=== PATIENT | male | born 2000 | race Caucasian/White ===

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

== ENCOUNTER 2018-02-07 10:41 | Inpatient (IN) | payer MEDICAID ==
[~2018-02-07] VITALS: Ht 175.3 cm; Wt 112.9 kg
[2018-02-07 11:05] VITALS: BP 125/60; PULSE 84; RESP 16; TEMP 98.6; O2SAT 100
[2018-02-07] MEDS ORDERED: CARB200C2 PO (12:17)
--- NOTE | 2018-02-07 12:38 | PD ---
HPI Chief Complaint: Psychiatric Symptoms Time Seen by Provider: 12:12 Travel History International Travel<30 days: No Contact w/Intl Traveler<30days: No Traveled to known affect area: No History of Present Illness HPI 18-year-old male presents emergency department voluntarily for psychiatric evaluation. He was sent here from [facility]. He sees Dr. Skaggs. He has history of as burgers and ADHD. He also has history of seizures and takes carbamazepine. Apparently he had amount down yesterday and his mother is at the bedside and said that he was making statements that he wished his heart would explode and he would . Per mom the patient has behavioral problems. The patient states that he is "emotionally a wreck." When he gets upset he punches [place]. He says he does not want to hurt anybody or hurt himself. He denies suicidal or homicidal ideations. Denies illicit drug use, alcohol use, tobacco use. Denies auditory or visual hallucinations. Mom states he has been drinking for energy drinks per day, and was not aware of this. He has been told by his neurologist that he should avoid energy drinks secondary to the medications that he is on. He denies chest pain, shortness of breath, abdominal pain, nausea, vomiting, fevers, change in urine or stool. Denies recent illness. He says his symptoms are worsened depending on the situation. He says his symptoms are better when listening to music and mom says that he "rocks." Symptoms are moderate to severe in severity. Unknown duration. Unknown onset. Primary care provider is Dr. Leggett. Psychiatrist is Dr. Skaggs. Allergies to Topamax. Has no other medical complaints. No other modifying factors or associated signs and symptoms. PFSH Past Medical History ADHD: Yes Developmental Delay: Yes Diminished Hearing: No Respiratory: Yes (RESP PROBLEMS AT ,LACK OF OXYGEN) Immunizations Current: Yes Seizures: Yes Past Surgical History Ear Surgery: Yes (tubes put in his ears three times.) Tonsillectomy: Yes (and adnoids out) Tympanostomy Tube: Yes Other Surgery: Yes ([facility]) Social History Alcohol Use: No Tobacco Use: No Substance Use: No Allergies-Medications (Allergen,Severity, Reaction): Coded Allergies: topiramate (Unverified Allergy, Mild, Seizures, 3/28/18) Mom states he had a grand mal seizure when this med was added. Reported Meds & Prescriptions Reported Meds & Active Scripts Active Klonopin (Clonazepam) 1 Mg Tab 1 Mg PO HS Risperdal (Risperidone) 1 Mg Tab 1 Mg PO BID Reported Carbatrol ER 12 HR (Carbamazepine) 200 Mg Cap 1,200 Mg PO DAILY Review of Systems Except as stated in HPI: all other systems reviewed are Neg Physical Exam Narrative GENERAL: Well-nourished, well-developed male patient, in no acute distress SKIN: Warm and dry. HEAD: Atraumatic. Normocephalic. EYES: Pupils equal and round. ENT: Mucosa pink and moist. NECK: Supple. Trachea midline. CARDIOVASCULAR: Regular rate and rhythm. No murmur appreciated. RESPIRATORY: No accessory muscle use. Clear to auscultation. Breath sounds equal bilaterally. GASTROINTESTINAL: Abdomen soft, non-tender, nondistended. Hepatic and splenic margins not palpable. Bowel sounds are active 4 quadrants. MUSCULOSKELETAL: No obvious deformities. No clubbing. No cyanosis. No edema. BACK: No CVA tenderness. NEUROLOGICAL: Awake and alert. Oriented 3. No obvious cranial nerve deficits. Motor grossly within normal limits. Normal speech. Moves all extremities. 5/5 strength to all extremities. PSYCHIATRIC: No delusional thought processes. No hallucinations. Data Data Last Documented VS Vital Signs Date Time Temp Pulse Resp B/P (MAP) Pulse Ox O2 Delivery O2 Flow Rate FiO2 02/07/18 11:05 98.6 84 16 125/60 (81) 100 Orders Orders Complete Blood Count With Diff (02/07/18 12:14) Comprehensive Metabolic Panel (02/07/18 12:14) Thyroid Stimulating Hormone (02/07/18 12:14) Psych Screen (02/07/18 12:14) Drug Screen, Random Urine (02/07/18 12:14) Alcohol (Ethanol) (02/07/18 12:14) Salicylates (Aspirin) (02/07/18 12:14) Tylenol (Acetaminophen) (02/07/18 12:14) Carbamazepine (Tegretol) (02/07/18 12:22) [facility] Medical Decision Making Medical Screen Exam Complete: Yes Emergency Medical Condition: Yes Medical Record Reviewed: Yes Differential Diagnosis Medical clearance for psychiatric evaluation, Asperger's, ADHD, mood disorders, adjustment disorder Narrative Course Patient presents voluntarily. Physical examination and vital signs are essentially unremarkable. Patient has no medical complaints to report. Psych screen has been ordered. If the laboratory results are unremarkable, the patient will be medically cleared for psychiatric evaluation and disposition. Diagnosis Primary Impression: Medical clearance for psychiatric admission Condition: Stable Ivana Wang Feb 07, 2018 12:38
[2018-02-07 12:48] LABS: AUTOMATED NEUTROPHIL # 3.8 TH/MM3 (1.8-7.7); BASOPHIL % 0.5 % (0.0-2.0); EOSINOPHIL # 0.1 TH/MM3 (0-0.4); EOSINOPHIL % 1.2 % (0.0-4.0); HEMATOCRIT 47.1 % (39.0-51.0); HEMOGLOBIN 16.4 GM/DL (13.0-17.0); LYMPH % 27.3 % (9.0-44.0); LYMPHOCYTE # 1.8 TH/MM3 (1.0-4.8); MEAN CORPUSCULAR HGB CONC 34.7 % (32.0-36.0); MEAN PLATELET VOLUME 6.4 FL (7.0-11.0); MONO % 12.2 % (0.0-8.0); MONOCYTE # 0.8 TH/MM3 (0-0.9); NEUT % 58.8 % (16.0-70.0); PLATELET COUNT 241 TH/MM3 (150-450); RED BLOOD COUNT 4.97 MIL/MM3 (4.50-5.90); RED CELL DISTRIBUTION WIDTH 12.6 % (11.6-17.2); WHITE BLOOD COUNT 6.4 TH/MM3 (4.0-11.0)
[2018-02-07 13:38] LABS: ACETAMINOPHEN LESS THAN 2.0 MCG/ML (10.0-30.0); ALBUMIN 3.7 GM/DL (3.4-5.0); ALT (GPT) 28 U/L (9-52); AST (GOT) 24 U/L (15-39); BICARBONATE 26.8 MEQ/L (21.0-32.0); BLOOD UREA NITROGEN 9 MG/DL (7-18); CALCIUM 8.6 MG/DL (8.5-10.1); CHLORIDE 108 MEQ/L (98-107); CREATININE 0.91 MG/DL (0.60-1.30); GLOMERULAR FILTRATION RATE 106 ML/MIN (>89); GLUCOSE,RANDOM 99 MG/DL (74-106); SODIUM (NA) 141 MEQ/L (136-145)
[2018-02-07 13:43] LABS: ALKALINE PHOSPHATASE 87 U/L (45-117); TOTAL BILIRUBIN ADULT 0.4 MG/DL (0.2-1.0); TOTAL PROTEIN 7.8 GM/DL (6.4-8.2)
[2018-02-07 18:37] VITALS: BP 126/60; PULSE 96; RESP 18; O2SAT 100
--- NOTE | 2018-02-07 21:26 | PD ---
History of Present Illness Chief Complaint: Psychiatric Symptoms Time Seen by Provider: 20:30 Travel History International Travel<30 Days: No Contact w/Intl Traveler<30days: No Known affected area: No Legal Status Legal Status: Voluntary History of Present Illness: History of Present Illness HPI 18-year-old, single, male with history of Asperger's spectrum disorder , impulse control disorder, seizure disorder, ADHD who presents emergency department voluntarily for psychiatric evaluation. He is accompanied by his guardian whom he calls his mother since she has taken care of him since he was 1 years old. He has been a patient of Dr. Skaggs for a few years at [facility]. The patient was brought to [facility] with complaints of increase in symptoms for the past 2 week including increase talk about wanting to , increased in talking about feeling depressed, increase in irritability, increase in episodes of anger. There have been several stressors in the past 4 weeks including medication changes by his neurologist ,who at the request of the patient changed his Carbatrol to once a day in the morning. The mother feels that since this change he has been more irritable. Patient was also fired from his job 2 weeks ago after he had an argument with a coworker and subsequently punching a compress her. He allegedly got fired because he told his employer that he was not able to manage his anger. After he lost his job vocational rehab has sent him back to high school for retraining since he is not yet 19 years old. Electronic medical record is reviewed. No previous contact with [facility] psychiatry. Current Tegretol level was 8.7. Toxicology is negative. Patient is seen in [facility]. He has been in adequate behavioral control. He is dressed in [facility] and maintaining basic hygiene. Fair amount of eye contact. Speech is clear and logical of normal tone and rate, demonstrates echolalia at times. There is no hallucinations, no delusions and no paranoia. Mood is dysphoric. He reports that when he feels depressed he has a tendency to stay in the dark in his room, decreased appetite, decreased decrease interactions with others. The patient does acknowledge passive suicidal ideation with no intent or plan at this time. He reports to sleeping fair with a tendency to sleep mostly during the daytime. Patient admits to occasional use of marijuana. Current toxicology as stated previously is negative. Telephone call to his more mother, Mirella to obtain collateral information at . She corroborates above information regarding recent medication changes as well as recent changes in his mood and his irritability. She also reports that she was his legal guardian up until he was age 16 but that she has not petitioned for legal guardianship of him as an adult. [facility] Past Medical History ADHD: Yes Developmental Delay: Yes Diminished Hearing: No Respiratory: Yes (RESP PROBLEMS AT ,LACK OF OXYGEN) Immunizations Current: Yes Seizures: Yes Past Surgical History Ear Surgery: Yes (tubes put in his ears three times.) Tonsillectomy: Yes (and adnoids out) Tympanostomy Tube: Yes Other Surgery: Yes ([facility]) Psychiatric History Psychiatric History Hx Psychiatric Treatment: No history of inpatient treatment. Has has received outpatient treatment at [facility] with Dr. Workman. History of Inpatient Treatment: No Guns or firearms in home: No Social History Single, never . Had finished high school in special education. 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 Hx Alcohol Use: No Hx Tobacco Use: No Hx Substance Use: No Substance Use Type: Marijuana Other Substances Used: Pt denies Hx of Substance Use Treatment: No Family Psychiatric History Negative Allergies-Medications (Allergen,Severity, Reaction): Coded Allergies: topiramate (Unverified Allergy, Mild, Seizures, 02/07/18) Mom states he had a grand mal seizure when this med was added. Reported Meds & Prescriptions Reported Meds & Active Scripts Active Klonopin (Clonazepam) 1 Mg Tab 1 Mg PO HS Risperdal (Risperidone) 1 Mg Tab 1 Mg PO BID Reported Carbatrol ER 12 HR (Carbamazepine) 200 Mg Cap 1,200 Mg PO DAILY Review of Systems Psychiatric: COMPLAINS OF: Mood changes, Depression Except as stated in HPI: all other systems reviewed are Neg Mental Status Examination Appearance: Appropriate Consciousness: Alert Orientation: x4 Motor Activity: Normal gait Speech: Unremarkable Language: Echolalia Fund of Knowledge: Adequate Attention and Concentration: Adequate Memory: Unremarkable Mood: Sad Affect: Other (Dysphoric) Thought Process & Associations: Intact, Logical Thought Content: Appropriate Hallucination Type: None Delusion Type: None Suicidal Ideation: No Suicidal Plan: No Suicidal Intention: No Homicidal Ideation: No Homicidal Plan: No Homicidal Intention: No Insight: Fair Judgment: Impulsive MDM Medical Decision Making Medical Record Reviewed: Yes Assessment/Plan 18-year-old, single, male with history of Asperger's spectrum disorder , impulse control disorder, seizure disorder, ADHD who presents emergency department voluntarily for psychiatric evaluation. The patient was brought to [facility] with complaints of increase in symptoms for the past 2 week including increase talk about wanting to , increased in talking about feeling depressed, increase in irritability, increase in episodes of anger. There have been several stressors in the past 4 weeks including medication changes by his neurologist ,who at the request of the patient changed his Carbatrol to once a day in the morning. The mother feels that since this change he has been more irritable. Patient was also fired from his job 2 weeks ago after he had an argument with a coworker and subsequently punching a compress her. He allegedly got fired because he told his employer that he was not able to manage his anger. At this time the patient meets criteria for inpatient psychiatric treatment for further evaluation, for medication adjustment and further stabilization. The patient agrees to come in on a voluntary status. Orders Orders Complete Blood Count With Diff (02/07/18 12:14) Comprehensive Metabolic Panel (02/07/18 12:14) Thyroid Stimulating Hormone (02/07/18 12:14) Psych Screen (02/07/18 12:14) Drug Screen, Random Urine (02/07/18 12:14) Alcohol (Ethanol) (02/07/18 12:14) Salicylates (Aspirin) (02/07/18 12:14) Tylenol (Acetaminophen) (02/07/18 12:14) Carbamazepine (Tegretol) (02/07/18 12:22) Results Vital Signs Date Time Temp Pulse Resp B/P (MAP) Pulse Ox O2 Delivery O2 Flow Rate FiO2 02/07/18 18:37 96 18 126/60 (82) 100 Room Air 02/07/18 11:05 98.6 84 16 125/60 (81) 100 Laboratory Tests Test 02/07/18 12:25 02/07/18 12:30 Urine Opiates Screen NEG Urine Barbiturates Screen NEG Urine Amphetamines Screen NEG Urine Benzodiazepines Screen NEG Urine Cocaine Screen NEG Urine Cannabinoids Screen NEG White Blood Count 6.4 Red Blood Count 4.97 Hemoglobin 16.4 Hematocrit 47.1 Mean Corpuscular Volume 95.0 Mean Corpuscular Hemoglobin 33.0 Mean Corpuscular Hemoglobin Concent 34.7 Red Cell Distribution Width 12.6 Platelet Count 241 Mean Platelet Volume 6.4 Neutrophils (%) (Auto) 58.8 Lymphocytes (%) (Auto) 27.3 Monocytes (%) (Auto) 12.2 Eosinophils (%) (Auto) 1.2 Basophils (%) (Auto) 0.5 Neutrophils # (Auto) 3.8 Lymphocytes # (Auto) 1.8 Monocytes # (Auto) 0.8 Eosinophils # (Auto) 0.1 Basophils # (Auto) 0.0 CBC Comment DIFF FINAL Differential Comment Blood Urea Nitrogen 9 Creatinine 0.91 Random Glucose 99 Total Protein 7.8 Albumin 3.7 Calcium Level 8.6 Alkaline Phosphatase 87 Aspartate Amino Transf (AST/SGOT) 24 Alanine Aminotransferase (ALT/SGPT) 28 Total Bilirubin 0.4 Sodium Level 141 Potassium Level 4.7 Chloride Level 108 Carbon Dioxide Level 26.8 Anion Gap 6 Estimat Glomerular Filtration Rate 106 Thyroid Stimulating Hormone 3rd Gen 1.860 Salicylates Level LESS THAN 1.7 Acetaminophen Level LESS THAN 2.0 Carbamazepine (Tegretol) Level 8.7 Ethyl Alcohol Level LESS THAN 3 Diagnosis Primary Impression: Medical clearance for psychiatric admission Additional Impressions: Autism spectrum disorder Adjustment disorder with depressed mood Admitting Information Admitting Physician Requests: Admit Condition: Stable Problem Qualifiers Mary Camacho Feb 07, 2018 21:26
[2018-02-07] MEDS ORDERED: ALUMINUM/MAGNESIUM/SIMETH 30 ML CUP PO PRN (22:00)
[2018-02-07] MEDS ORDERED: MAGNESIUM HYDROXIDE SUSP 30 ML CUP PO PRN (22:00)
[2018-02-07] MEDS: risperiDONE 1 MG TAB PO SCH (22:13)
[2018-02-07] MEDS ORDERED: clonazePAM 1 MG TAB PO ONE ×2 (22:30)
[2018-02-08 02:00] VITALS: BP 152/104; PULSE 91; RESP 16; TEMP 98.3; O2SAT 98
[2018-02-08 05:56] VITALS: BP 114/55; PULSE 71; RESP 16; TEMP 98; O2SAT 99
[2018-02-08] MEDS ORDERED: CARBAMAZEPINE PO SCH (09:00)
[2018-02-08] MEDS: risperiDONE 1 MG TAB PO SCH ×2 (09:16→21:02)
[2018-02-08 11:30] VITALS: BP 106/57; PULSE 89
[2018-02-08 12:24] LABS: BICARBONATE 32.5 MEQ/L (21.0-32.0); BLOOD UREA NITROGEN 11 MG/DL (7-18); CALCIUM 9.3 MG/DL (8.5-10.1); CHLORIDE 106 MEQ/L (98-107); CHOLESTEROL 216 MG/DL (120-200); GLOMERULAR FILTRATION RATE 85 ML/MIN (>89); GLUCOSE,RANDOM 81 MG/DL (74-106); SODIUM (NA) 142 MEQ/L (136-145); TRIGLYCERIDES 254 MG/DL (42-150)
[2018-02-08 12:26] LABS: CHOLESTEROL/ HDL RATIO 6.48 RATIO; HDL CHOLESTEROL 33.3 MG/DL (40.0-60.0); LDL CHOLESTEROL 132 MG/DL (0-99)
[2018-02-08] MEDS ORDERED: CARB200C6 (12:27)
[2018-02-08] MEDS ORDERED: CARB400T2 ×2 (12:28→12:29)
[2018-02-08] MEDS ORDERED: hydrOXYzine HCL 50 MG TAB PO PRN (13:45)
--- NOTE | 2018-02-08 14:05 | HHI.HP ---
Provisional Diagnosis Admission Date Feb 07, 2018 at 21:56 [place]. Adjustment disorder with depressed mood f 43.21, Asperger's syndrome Certification of Person's Competence To Provide Express and Informed Consent I have personally examined Blake Mancera , a person being served at [facility] on, Feb 08, 2018 13:53. Express and informed consent means consent voluntarily given in writing, by a competent person, after sufficient explanation and disclosure of the subject matter involved to enable the person to make a knowing and willful decision without any element of force, fraud, deceit, duress, or other form of constraint or coercion. This person is 18 years of age or older, is not now known to be incompetent to consent to treatment with a guardian advocate, and does not have a health care surrogate or proxy currently making medical treatment decisions. I have found this person to be one of the following: [xxx Competent to provide express and informed consent, as defined above, for voluntary admission to this facility and is competent to provide express and informed consent for treatment. He/she has the consistent capacity to make well reasoned, willful, and knowing decisions concerning his or her medical or mental health treatment. The person fully and consistently understands the purpose of the admission for examination/placement and is fully capable of personally exercising all rights assured [place] [] Incompetent to provide express and informed consent to voluntary admission, and this is incompetent to provide express and informed consent to treatment. The person must be transferred to involuntary status and a petition for a guardian advocate filed with the Circuit Court. [] Refusing to provide express and informed consent to voluntary admission but is competent to provide express and informed consent for treatment. The person must be discharged or transferred to involuntary status. Form shall be completed within 24 hours of a person's arrival at the receiving facility and filed in the clinical record of each person: 1. Admitted on a voluntary basis 2. Permitted to provide express and informed consent to his/her own treatment 3. Allowed to transfer from involuntary to voluntary status 4. Prior to permitting a person to consent to his or her own treatment after having been previously found incompetent to consent to treatment. History of Present Illness Capacity: Has Capacity HPI Patient is a 18-year-old white male with history of Asperger's syndrome, ADHD comes voluntarily to the hospital complaining of depression with decreased suicidal ideation. Of interest patient has been seen at [facility] by Dr. duron who is still following him now. 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 He was returned to [facility] for some type of remedial type course. He states she's had a few week history of increased depression but he states his sleep is not been very disturbed his appetite is okay though he does isolate more. He denies voices or visions with this but there is the thought of suicide they would want to drink herself to with alcohol. He states he had some type of suicide attempt in the past though he denies prior inpatient psychiatric hospitalization. He denies any other drug use including alcohol marijuana or other drugs. He lives with his mother father and younger brother. A couple of dogs and a couple of cats. He states he also has a history of petit mal seizures, he acknowledges that he is Asperger's disease. Patient is well oriented at this time is calm and cooperative with me. At this time patient does meet criteria for further observation assessment treatment. Will add Lexapro to his medications better been reviewed per the med reconciliation. Relive a hospitalist consult will. We'll attempt to reach patient's family to get further information about this young man area. Be fairly short stay manic term to his family follow-up with Dr. hinojosa Review of Systems Psychiatric: DENIES: Anxiety, Confusion, Mood changes, Depression, Hallucinations, Agitation, Suicidal Ideation, Homicidal Ideation, Delusions Past Psych History Psychological trauma history Patient denies Violence risk - others (6 mos) Patient was somewhat aggressive with a coworker Violence risk - self (6 mos) Patient states suicidal ideation with intent to drink himself to Substance Abuse History Drugs/Alcohol past 12 months Patient denies Past Family Social History Coded Allergies: topiramate (Unverified Allergy, Mild, Seizures, 02/07/18) Mom states he had a grand mal seizure when this med was added. Active Scripts Clonazepam (Klonopin) 1 Mg Tab, 1 MG PO HS, #30 TAB 2 Refills Prov:Joaquina Skaggs MD 09/18/17 Risperidone (Risperdal) 1 Mg Tab, 1 MG PO BID, #60 TAB 3 Refills Prov:Joaquina Skaggs MD 09/18/17 Reported Medications Carbamazepine ER 12 HR (Carbamazepine ER 12 HR) 400 Mg Tab, 800 MG HS, #60 TAB 0 Refills 02/08/18 Carbamazepine ER 12 HR (Carbamazepine ER 12 HR) 400 Mg Tab, 400 MG DAILY, #60 TAB 0 Refills 02/08/18 Carbamazepine ER 12 HR (Carbamazepine ER 12 HR) 200 Mg Cap, 200 MG DAILY, #60 CAP 0 Refills 02/08/18 Discontinued Reported Medications Carbamazepine (Tegretol) Unknown Strength Tab, PO BID, #60 TAB 0 Refills 10/31/16 Current Medications Medications (Trade) Dose Ordered Sig/João Route Start Time Stop Time Status Last Admin (Milk Of Magnesia Liq) 30 ml DAILY PRN PO 02/07/18 22:00 (Mag-Al Plus Susp Liq) 30 ml Q6H PRN PO 02/07/18 22:00 (risperDAL) 1 mg BID PO 02/07/18 22:00 02/08/18 09:16 Patient Own Medication 1,400 ea DAILY PO 02/09/18 09:00 UNV Family Psych History Patient denies Social History Patient lives with his mother father and younger brother and pet dogs and cats.Not have much socialization. States homelessness to music Patient's Strengths (min. 2) Patient verbal [facility] calm and cooperative Physical Exam Patient medically cleared ED at the present time patient laying quietly in his bed he is in no acute distress, he is in no respiratory distress, no complaints of abdominal pain. Patient moving all 4 extremities without difficulty no abnormal motor movements noted though there appears to some vague stereotypic movements of his right hand and fingers Vital Signs Vital Signs Date Time Temp Pulse Resp B/P (MAP) Pulse Ox O2 Delivery O2 Flow Rate FiO2 02/08/18 11:30 89 106/57 (73) 02/08/18 05:56 98.0 16 99 02/07/18 18:37 Room Air Lab Results Test 02/08/18 11:04 Blood Urea Nitrogen 11 MG/DL Creatinine 1.10 MG/DL Random Glucose 81 MG/DL Calcium Level 9.3 MG/DL Sodium Level 142 MEQ/L Potassium Level 4.2 MEQ/L Chloride Level 106 MEQ/L Carbon Dioxide Level 32.5 MEQ/L Anion Gap 4 MEQ/L Estimat Glomerular Filtration Rate 85 ML/MIN Triglycerides Level 254 MG/DL Cholesterol Level 216 MG/DL LDL Cholesterol 132 MG/DL HDL Cholesterol 33.3 MG/DL Cholesterol/HDL Ratio 6.48 RATIO Mental Status Examination Appearance: Appropriate Consciousness: Alert Orientation: x4 Motor Activity: Normal gait Speech: Unremarkable Language: Echolalia Fund of Knowledge: Adequate Attention and Concentration: Adequate Memory: Unremarkable Mood: Sad Affect: Other (decreased range and intensity) Thought Process & Associations: Intact, Logical Thought Content: Appropriate Hallucination Type: None Delusion Type: None Suicidal Ideation: No Suicidal Plan: No Suicidal Intention: No Homicidal Ideation: No Homicidal Plan: No Homicidal Intention: No Insight: Fair Judgment: Impulsive Assessment & Plan Problem List: (1) Asperger syndrome ICD Codes: F84.5 - Asperger's syndrome (2) Adjustment disorder with depressed mood ICD Codes: F43.21 - Adjustment disorder with depressed mood Status: Acute (3) Seizures ICD Codes: R56.9 - Convulsions Status: Acute Assessment & Plan Estimated LOS: 5-7 days at this time patient meets criteria for further inpatient psychiatric hospitalization medication management and observation. Diflunisal capacity to sign voluntary will let him sign voluntary. We will have hospice consult was. We will continue patient's family get further information. Discharge Planning Return to family with follow-up Dr. hinojosa Request HC Surrog/Guard Advoc?: Andrea Cabezas MD Feb 08, 2018 14:05
--- NOTE | 2018-02-08 16:32 | PD.CONS ---
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 He is now admitted to inpatient psychiatry unit for further evaluation. Consulted for assistance in medical management. Patient seen and examined today reports he does not really have any medical problems except for his seizure disorder who follows a neurologist for it. Patient states he takes medication Carbatrol. He forgot the name of the neurologist that he follows but states he has been following up with him. Denies pain and discomfort. Denies SOB/ dyspnea. Denies chest pain, palpitations, headaches, dizziness. Denies fevers, chills, n/v/d. Denies dysuria. Review of Systems Except as stated in HPI: all other systems reviewed are Neg Past Family Social History Allergies: Coded Allergies: topiramate (Unverified Allergy, Mild, Seizures, 02/07/18) Mom states he had a grand mal seizure when this med was added. Past Medical History ADHD Developmental delay Asperger's Seizure disorder Past Surgical History Tonsillectomy ECMO Reported Medications Reported Meds & Active Scripts Active Klonopin (Clonazepam) 1 Mg Tab 1 Mg PO HS Risperdal (Risperidone) 1 Mg Tab 1 Mg PO BID Reported Carbamazepine ER 12 HR (Carbamazepine) 400 Mg Tab 800 Mg HS Carbamazepine ER 12 HR (Carbamazepine) 400 Mg Tab 400 Mg DAILY Carbamazepine ER 12 HR (Carbamazepine) 200 Mg Cap 200 Mg DAILY Active Ordered Medications Current Medications Medications (Trade) Dose Ordered Sig/João Route Start Time Stop Time Status Last Admin (Milk Of Magnesia Liq) 30 ml DAILY PRN PO 02/07/18 22:00 (Mag-Al Plus Susp Liq) 30 ml Q6H PRN PO 02/07/18 22:00 (risperDAL) 1 mg BID PO 02/07/18 22:00 02/08/18 09:16 Patient Own Medication PT OWN MED:CARBAMAZEPINE ER 400MG... BID PO 02/09/18 09:00 (Atarax) 50 mg Q6H PRN PO 02/08/18 13:45 (KlonoPIN) 1 mg HS PO 02/08/18 21:00 (Lexapro) 10 mg DAILY PO 02/09/18 09:00 Patient Own Medication PT OWN MED:CARBAMAZEPINE ER 200MG TABL... DAILY PO 02/09/18 09:00 Family History Family history of high blood pressure Social History Denies alcohol use Former smoker half a pack a day, quit New Year's day as his New Year's resolution, about 3-5 years smoking history Denies illicit drug use Physical Exam Vital Signs Vital Signs Date Time Temp Pulse Resp B/P (MAP) Pulse Ox O2 Delivery O2 Flow Rate FiO2 02/08/18 11:30 89 106/57 (73) 02/08/18 05:56 98.0 71 16 114/55 (74) 99 02/08/18 02:00 98.3 91 16 152/104 (120) 98 02/07/18 18:37 96 18 126/60 (82) 100 Room Air Physical Exam GENERAL: This is an obese, well-developed patient, in no apparent distress. SKIN: Warm and dry. HEAD: Normocephalic. EYES: Pupils equal round and reactive. Extraocular motions intact. No scleral icterus. No injection or drainage. ENT: Nose without bleeding. Throat without erythema. Uvula midline. Airway patent. NECK: Trachea midline. CARDIOVASCULAR: Regular rate and rhythm without murmurs, gallops, or rubs. RESPIRATORY: Clear to auscultation. Breath sounds equal bilaterally. No wheezes , rales, or rhonchi. GASTROINTESTINAL: Abdomen soft, non-tender, nondistended. Bowel sounds active 4. MUSCULOSKELETAL: Extremities without clubbing, cyanosis, or edema. NEUROLOGICAL: Awake and alert. Cranial nerves II through XII intact. Motor and sensory grossly within normal limits. Normal speech. Laboratory Laboratory Tests Test 02/08/18 11:04 Blood Urea Nitrogen 11 Creatinine 1.10 Random Glucose 81 Calcium Level 9.3 Sodium Level 142 Potassium Level 4.2 Chloride Level 106 Carbon Dioxide Level 32.5 Anion Gap 4 Estimat Glomerular Filtration Rate 85 Triglycerides Level 254 Cholesterol Level 216 LDL Cholesterol 132 HDL Cholesterol 33.3 Cholesterol/HDL Ratio 6.48 Result Diagram: 02/07/18 1230 02/08/18 1104 Assessment and Plan Problem List: (1) ADHD (attention deficit hyperactivity disorder), combined type ICD Code: F90.2 - Attention deficit hyperactivity disorder (ADHD), combined type Status: Acute (2) Seizures ICD Code: R56.9 - Convulsions Status: Acute (3) Asperger syndrome ICD Code: F84.5 - Asperger's syndrome Assessment and Plan Patient is a 18-year-old male with primary medical history of seizure disorder, psychiatric history of ADHD, Asperger's, developmental delay who came into the hospital brought in by mother as the patient is making statements that he wished to and that his heart would explode. He is now admitted to inpatient psychiatry unit for further evaluation. Consulted for assistance in medical management. Depression, suicidal ideation ADHD, Asperger's -Managed by psychiatry team Seizure disorder -Carbatrol 1200mg daily -Carbamazepine level within normal 8.7 -Seizure precautions -No seizures reported -Follow-up with neurologist as an outpatient Hyperlipidemia -Discussed extensively with patient lifestyle changes. Weight loss, diet and exercise. -States that he would need someone in his family to remind him what to eat and to monitor him. We will ask nursing to provide information to family low fat diet. -We will not start with medications for now. Encouraged lifestyle changes -Follow-up lipid profile in 3 months with PCP Labs reviewed. DVT prop ambulatory Stable from Hospitalist standpoint. We will sign off. Reconsult as needed. Code Status Full code Discussed Condition With Patient, nursing Britton Wagner Feb 08, 2018 16:32
[2018-02-08] MEDS: clonazePAM 1 MG TAB PO SCH (21:00)
[2018-02-09 05:51] VITALS: BP 152/93; PULSE 71; RESP 16; TEMP 97.6; O2SAT 98
[2018-02-09] MEDS: CARBAMAZEPINE 200 MG PO SCH (08:29)
[2018-02-09] MEDS: ESCITALOPRAM OXALATE 10 MG TAB PO SCH (08:29)
[2018-02-09] MEDS: risperiDONE 1 MG TAB PO SCH ×2 (08:29→20:35)
[2018-02-09] MEDS: CARBAMAZEPINE 400 MG PO SCH ×2 (08:29→20:33)
--- NOTE | 2018-02-09 11:16 | EKG ---
Date Performed: 02/08/2018 Time Performed: 13:28:22 PTAGE: 18 years EKG: Sinus rhythm NORMAL ECG NO PREVIOUS TRACING DOCTOR: Junaid Meza Interpretating Date/Time 02/09/2018 11:12:25
--- NOTE | 2018-02-09 13:35 | HHI.PYPN ---
Subjective Remarks Patient seen in his room with nurse Jan, chart reviewed, patient compliant medications, patient discussed with nurse. Patient laying in bed calm though somewhat malodorous. He is somewhat vague and perhaps manipulating today a concerning both auditory hallucinations and concerning suicidality. He isolates but is no other behavioral problem. For now continue treatment Review of Systems Except as stated in HPI: all other systems reviewed are Neg Mental Status Examination Appearance: Appropriate Consciousness: Alert Orientation: x4 Motor Activity: Normal gait Speech: Unremarkable Language: Echolalia Fund of Knowledge: Adequate Attention and Concentration: Adequate Memory: Unremarkable Mood: Sad Affect: Other (decreased range and intensity) Thought Process & Associations: Intact, Logical Thought Content: Appropriate Hallucination Type: None Delusion Type: None Suicidal Ideation: No Suicidal Plan: No Suicidal Intention: No Homicidal Ideation: No Homicidal Plan: No Homicidal Intention: No Insight: Fair Judgment: Impulsive Results Vitals/IOs Vital Signs Date Time Temp Pulse Resp B/P (MAP) Pulse Ox O2 Delivery O2 Flow Rate FiO2 02/09/18 05:51 97.6 71 16 152/93 (112) 98 02/07/18 18:37 Room Air Intake and Output 02/09/18 02/09/18 02/10/18 08:00 16:00 00:00 Intake Total 480 ml Balance 480 ml Assessment & Plan Problem List: (1) Asperger syndrome ICD Codes: F84.5 - Asperger's syndrome (2) Adjustment disorder with depressed mood ICD Codes: F43.21 - Adjustment disorder with depressed mood Status: Acute (3) Seizures ICD Codes: R56.9 - Convulsions Status: Acute Assessment & Plan Estimated LOS: days patient remains depressed though this appears be somewhat of her manipulation with them he continues to verify vague suicidality and vague voices. For now continue treatment Justification for Cont. Inpt. This time patient decompensated Place the lower level of care Discharge Planning Return home with family Request HC Surrog/Guard Advoc?: Andrea Cabezas MD Feb 09, 2018 13:35
[2018-02-09 16:03] VITALS: BP 115/66; PULSE 60; RESP 17; TEMP 98.5; O2SAT 99
[2018-02-09] MEDS: clonazePAM 1 MG TAB PO SCH (20:35)
[2018-02-10 05:46] VITALS: BP 120/70; PULSE 93; RESP 16; TEMP 97.6; O2SAT 98
[2018-02-10] MEDS: ESCITALOPRAM OXALATE 10 MG TAB PO SCH (08:40)
[2018-02-10] MEDS: risperiDONE 1 MG TAB PO SCH ×2 (08:40→20:42)
[2018-02-10] MEDS: CARBAMAZEPINE 400 MG PO SCH ×2 (08:41→20:43)
[2018-02-10] MEDS: CARBAMAZEPINE 200 MG PO SCH (08:41)
--- NOTE | 2018-02-10 12:34 | HHI.PYPN ---
Subjective Remarks Patient was seen and case discussed with nursing. Patient attributes his change in behavior to a medication change. Today he says he feels tired and spending all day in bed. He denies depressed mood though affect is blunted. Denies auditory visual hallucinations. Denies suicidal or homicidal ideation intent or plan. There has not been any irritability, mood swings or aggression on the unit. Compliant with medications. yesterday noted manipulative behavior Mental Status Examination Appearance: Appropriate Consciousness: Alert Orientation: x4 Motor Activity: Normal gait Speech: Unremarkable Language: Echolalia Fund of Knowledge: Adequate Attention and Concentration: Adequate Memory: Unremarkable Mood: Sad Affect: Other (decreased range and intensity) Thought Process & Associations: Intact, Logical Thought Content: Appropriate Hallucination Type: None Delusion Type: None Suicidal Ideation: No Suicidal Plan: No Suicidal Intention: No Homicidal Ideation: No Homicidal Plan: No Homicidal Intention: No Insight: Fair Judgment: Impulsive Results Vitals/IOs Vital Signs Date Time Temp Pulse Resp B/P (MAP) Pulse Ox O2 Delivery O2 Flow Rate FiO2 02/10/18 05:46 97.6 93 16 120/70 (87) 98 02/07/18 18:37 Room Air Intake and Output 02/10/18 02/10/18 02/11/18 08:00 16:00 00:00 Intake Total 240 ml Balance 240 ml Assessment & Plan Problem List: (1) Asperger syndrome ICD Codes: F84.5 - Asperger's syndrome (2) Adjustment disorder with depressed mood ICD Codes: F43.21 - Adjustment disorder with depressed mood Status: Acute (3) Seizures ICD Codes: R56.9 - Convulsions Status: Acute Assessment & Plan Continue current treatment plan Justification for Cont. Inpt. Patient would decompensate in a less restrictive setting Request HC Surrog/Guard Advoc?: No Denys Gaffney DO Feb 10, 2018 12:34
[2018-02-10 17:28] VITALS: BP 122/57; PULSE 75; RESP 16; TEMP 98.3; O2SAT 98
[2018-02-10] MEDS: clonazePAM 1 MG TAB PO SCH (20:42)
[2018-02-11 05:37] VITALS: BP 126/65; PULSE 69; RESP 18; TEMP 97.9; O2SAT 98
[2018-02-11] MEDS: risperiDONE 1 MG TAB PO SCH ×2 (08:22→21:43)
[2018-02-11] MEDS: ESCITALOPRAM OXALATE 10 MG TAB PO SCH (08:22)
[2018-02-11] MEDS: CARBAMAZEPINE 400 MG PO SCH ×2 (08:23→21:43)
[2018-02-11] MEDS: CARBAMAZEPINE 200 MG PO SCH (08:23)
--- NOTE | 2018-02-11 11:58 | HHI.PYPN ---
Subjective Remarks Patient was seen and case discussed with nursing. Patient is on good behavior today. He says he is tired but he didn't get out of bed for lunch. No agitation or irritability or outbursts noted. Seclusive to self. Compliant with medications and tolerating them well Mental Status Examination Appearance: Appropriate Consciousness: Alert Orientation: x4 Motor Activity: Normal gait Speech: Unremarkable Language: Echolalia Fund of Knowledge: Adequate Attention and Concentration: Adequate Memory: Unremarkable Mood: Sad Affect: Other (decreased range and intensity) Thought Process & Associations: Intact, Logical Thought Content: Appropriate Hallucination Type: None Delusion Type: None Suicidal Ideation: No Suicidal Plan: No Suicidal Intention: No Homicidal Ideation: No Homicidal Plan: No Homicidal Intention: No Insight: Fair Judgment: Impulsive Results Vitals/IOs Vital Signs Date Time Temp Pulse Resp B/P (MAP) Pulse Ox O2 Delivery O2 Flow Rate FiO2 02/11/18 05:37 97.9 69 18 126/65 (85) 98 02/07/18 18:37 Room Air Assessment & Plan Problem List: (1) Asperger syndrome ICD Codes: F84.5 - Asperger's syndrome (2) Adjustment disorder with depressed mood ICD Codes: F43.21 - Adjustment disorder with depressed mood Status: Acute (3) Seizures ICD Codes: R56.9 - Convulsions Status: Acute Assessment & Plan Continue current treatment plan Justification for Cont. Inpt. Patient will decompensate in a less restrictive setting Request HC Surrog/Guard Advoc?: No Denys Gaffney DO Feb 11, 2018 11:58
[2018-02-11 18:39] VITALS: BP 130/72; PULSE 76; RESP 18; TEMP 98.5; O2SAT 95
[2018-02-11] MEDS: clonazePAM 1 MG TAB PO SCH (21:43)
[2018-02-12 05:46] VITALS: BP 105/66; PULSE 70; RESP 16; TEMP 97.9; O2SAT 99
[2018-02-12] MEDS: risperiDONE 1 MG TAB PO SCH (08:49)
[2018-02-12] MEDS: CARBAMAZEPINE 400 MG PO SCH (08:50)
[2018-02-12] MEDS: CARBAMAZEPINE 200 MG PO SCH (08:50)
[2018-02-12] MEDS: ESCITALOPRAM OXALATE 10 MG TAB PO SCH (08:51)
--- NOTE | 2018-02-12 11:19 | PD.TTN ---
Patient Problems 1. Discharge planning 2. Medication compliance 3. Knowledge deficit 4. Lack of coping skills Progress Toward Goals Provider Present: Dr. Mark Cardoso Provider Input: Dr. Cardoso had his treatment team meeting to discuss patient's discharge, medication, and treatment plan. Patient is medication compliant. Doing well. Possible discharge today. Nurse(s) Input: Patient's nurse reports patient slept ok, denies suicidal and homicidal ideation. Patient is medication compliant no behavioral problem on unit. Patient is seclusive to room. Psychiatric Counselors Present: Sherly Irving [facility] Psych Therapist Input: Patient seen in his room. Patient reports sleeping excessively. Patient reports being medication compliant, eating ok. Patient made fair eye contact. Patient's speech was clear, organized, denied any internal stimulation. Group Spec/RT/OT/NOYOLA Present: Massimo Beard OT Group Spec/RT/OT/NOYOLA Input: Patient has no interest in groups. Sherly Irving [facility] Feb 12, 2018 11:19
[2018-02-12] MEDS ORDERED: CARB400T2 PO ×2 (12:37)
[2018-02-12] MEDS ORDERED: CLON1 PO (12:37)
[2018-02-12] MEDS ORDERED: CARB200C6 PO (12:37)
[2018-02-12] MEDS ORDERED: ESCI10TA PO (12:37)
[2018-02-12] MEDS ORDERED: RISP1 PO (12:37)
--- NOTE | 2018-02-12 12:47 | HHI.DS ---
Psychiatry Discharge Summary Inpatient Psychiatric care?: Yes Advance Directive: No Reason Not Provided: declined Mental Health AdvanceDirective: No Health Care Proxy: No Admission Admission Date Feb 07, 2018 at 21:56 Admission Diagnosis: (1) Adjustment disorder with depressed mood ICD Code: F43.21 - Adjustment disorder with depressed mood (2) Asperger syndrome ICD Code: F84.5 - Asperger's syndrome (3) Seizures ICD Code: R56.9 - Convulsions Brief History Patient is a 18-year-old white male with history of Asperger's syndrome, ADHD comes voluntarily to the hospital complaining of depression with decreased suicidal ideation. Of interest patient has been seen at [facility] by Dr. duron who is still following him now. 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 He was returned to [facility] for some type of remedial type course. He states she's had a few week history of increased depression but he states his sleep is not been very disturbed his appetite is okay though he does isolate more. He denies voices or visions with this but there is the thought of suicide they would want to drink herself to with alcohol. He states he had some type of suicide attempt in the past though he denies prior inpatient psychiatric hospitalization. He denies any other drug use including alcohol marijuana or other drugs. He lives with his mother father and younger brother. A couple of dogs and a couple of cats. He states he also has a history of petit mal seizures, he acknowledges that he is Asperger's disease. Patient is well oriented at this time is calm and cooperative with me. At this time patient does meet criteria for further observation assessment treatment. Will add Lexapro to his medications better been reviewed per the med reconciliation. Relive a hospitalist consult will. We'll attempt to reach patient's family to get further information about this young man area. Be fairly short stay manic term to his family follow-up with Dr. hinojosa Tobacco Use In Past 30 Days: No Tobacco Past 30 Days Alcohol Use: Never Hospital Course Patient's hospital course was uneventful calmly show compliance medication from day 1. He spent much time in his room though it did not appear very interested in the milieu or programming. Though his ADLs were fine. He did have a good weekend. Has been compliant with his medications. Patient seen today with nurse is alert oriented calm cooperative now denies suicidality homicidality voices or visions. Disease had good conversations with his parents. Thus a feel at this time patient has reached maximum benefit of this hospitalization and will be discharged today to himself, he will be living with his parents, follow-up with Dr. byrd Results Blood Pressure 105 / 66 Vital Signs Date Time Temp Pulse Resp B/P (MAP) Pulse Ox O2 Delivery O2 Flow Rate FiO2 02/12/18 05:46 97.9 70 16 105/66 (79) 99 Laboratory Results Test 02/08/18 11:04 Cholesterol Level 216 MG/DL (120-200) HDL Cholesterol 33.3 MG/DL (40.0-60.0) Hemoglobin A1c 5.0 % (4.3-6.0) LDL Cholesterol 132 MG/DL (0-99) Triglycerides Level 254 MG/DL (42-150) Summary of Procedures None done Pending results at discharge: No Medications # of Antipsychotic meds at D/C: 1 Approp Antipsych med options 1 - Minimum of three failed multiple trials of monotherapy. 2 - Documented plan to taper to monotherapy due to previous use of multiple meds OR cross-taper in progress at D/C. 3 - Documentation of augmentation of Clozapine. 4 - Justification other than those listed in allowable values 1-3, document here : Discharge Discharge Date: Feb 12, 2018 Discharge Diagnosis: (1) Adjustment disorder with depressed mood Diagnosis: Principal ICD Code: F43.21 - Adjustment disorder with depressed mood Status: Acute (2) Asperger syndrome Diagnosis: Secondary ICD Code: F84.5 - Asperger's syndrome (3) Seizures Diagnosis: Secondary ICD Code: R56.9 - Convulsions Status: Acute Pt Condition on Discharge: Stable Discharge Disposition: Discharge Home Discharge Instructions Diet Instructions: As Tolerated, No Restrictions Activities you can perform: Regular-No Restrictions Scheduled Appointment: follow-up Adair byrd Discharge Time > 30 minutes Mental Status Examination Appearance: Appropriate Consciousness: Alert Orientation: x4 Motor Activity: Normal gait Speech: Unremarkable Language: Echolalia Fund of Knowledge: Adequate Attention and Concentration: Adequate Memory: Unremarkable Mood: Sad Affect: Other (decreased range and intensity) Thought Process & Associations: Intact, Logical Thought Content: Appropriate Hallucination Type: None Delusion Type: None Suicidal Ideation: No Suicidal Plan: No Suicidal Intention: No Homicidal Ideation: No Homicidal Plan: No Homicidal Intention: No Insight: Fair Judgment: Impulsive Discharge/Advance Care Plan Health Problems: (1) Asperger syndrome (2) Adjustment disorder with depressed mood (3) Seizures Goals to promote your health * To prevent worsening of your condition and complications * To maintain your health at the optimal level Directions to meet your goals Take your medications as prescribed Follow your dietary instruction Follow activity as directed Keep your appointments as scheduled Take your immunizations and boosters as scheduled If your symptoms worsen call your PCP, if no PCP go to Urgent Care Center or Emergency Room For 05/06 questions related to your inpatient stay or results of tests pending at discharge, please contact Dr. Andrea Cardoso at Smoking is Dangerous to Your Health. Avoid second hand smoking Andrea Cardoso MD Feb 12, 2018 12:47
== END 2018-02-12 14:50 | disposition home or self-care (01) | DRG 881 ==
LOC: NEPD 10:41 → NEDA 21:56 → H260 02-08 02:00
PROVIDERS: ADMIT Psychiatry & Neurology Psychiatry; ATTEND Psychiatry & Neurology Psychiatry
DX: F43.21 Adjustment disorder with depressed mood (principal); R45.851 Suicidal ideations; G40.409 Other generalized epilepsy and epileptic syndromes, not intractable, without status epilepticus; F84.5 Asperger's syndrome; F90.2 Attention-deficit hyperactivity disorder, combined type; R48.8 Other symbolic dysfunctions; E78.5 Hyperlipidemia, unspecified; R62.50 Unspecified lack of expected normal physiological development in childhood; Z87.891 Personal history of nicotine dependence
CPT/HCPCS: 80048; 80053; 80061; 80156; 80307; 83036; 84443; 85025; 93005